=== PATIENT | male | born 1980 | race Caucasian/White ===

== ENCOUNTER → 2016-08-09 | Outpatient (CLI) | payer BC ==
--- NOTE | 2016-08-20 08:11 | CODING QUERY NO DIAGNOSIS ---
TREATMENT RENDERED WITHOUT A DIAGNOSIS : 81 To promote full compliance with coding requirements relating to patient care, physician participation is requested in all cases of animal husbandry worker uncertainty. Please assist us with providing a diagnosis/symptom for the test(s) below: A diagnosis/symptom was not documented on your Order. A valid diagnosis/symptom is required to bill all insurances. Please remember that we are unable to code a diagnosis of rule out, probable, possible, questionable, or suspected. Tests that require a diagnosis: DOS: 08/09/16 * VAS DEFERENS PROCEDURE DIAGNOSIS: Provider Signature: Date: Thank you Kacey Alfonso [facility] Information Management Once completed, please kindly fax back to [phone] For questions please call [phone]
== END | disposition home or self-care (01) ==
LOC: C.PATHSPEC 11:59
PROVIDERS: ATTEND Urology
DX: Z30.2 Encounter for sterilization (principal)